=== PATIENT | male | born 1990 | race African-American/Black ===

== ENCOUNTER 2021-05-25 10:20 | Emergency (ER) | payer SELFPAY ==
[~2021-05-25] VITALS: Ht 165.1 cm; Wt 77.1 kg
[2021-05-25] MEDS ORDERED: AUGMENTIN 875-1 EACH PO (10:28)
== END 2021-05-25 10:50 | disposition home or self-care (01) ==
LOC: ER 10:26
DX: K08.89 Other specified disorders of teeth and supporting structures (principal)
CPT/HCPCS: 99283